=== PATIENT | female | born 1985 | race Caucasian/White ===

== ENCOUNTER 2022-07-15 08:58 | Day surgery (SDC) | payer OTHER, SELFPAY ==
--- NOTE | 2022-07-14 13:24 | P.CONAN_ITS ---
Documented by User: Africa Donnelly NP 07/14/22 13:25 HPI - Anesthesia Eval Consult details Narrative: 37yo F for Colonoscopy [facility] Past Medical History Medical History Ganglion cyst of wrist Irregular bowel habits Surgical History Surgical History (Updated 07/15/22 @ 09:31 by Rosy Becerra RN) History of cholecystectomy History of surgical removal of ganglion cyst Social History Social History Patient Tobacco Use Status: Never used Tobacco Use of substances other than those prescribed or required for medical reasons: Yes Substance Use Type Other:: edibles Are you DNR?: No Advance Directives: No Advance Directives Information Provided: Yes Meds Allergies Allergy/AdvReac Type Severity Reaction Status Date / Time doxycycline Allergy Nightmare Verified 07/15/22 09:32 Home Medications Medication Instructions Recorded Confirmed Last Taken Type prenat.vits,crystal,[id number]-[id number] 1 tab PO DAILY 07/15/22 07/15/22 Unknown History Exam Exam Date and Time: July 14, 20221323 Assessment and Plan Assessment Anesthesia Assessment: Chart Reviewed Documented by User: Yamileth Ledezma MD 07/15/22 11:59 [facility] Past Medical History Medical History Ganglion cyst of wrist Irregular bowel habits Family History Family history of problems with anesthesia: No Surgical History Surgical History (Updated 07/15/22 @ 09:31 by Rosy Becerra RN) History of cholecystectomy History of surgical removal of ganglion cyst History of Problems with Anesthesia: No Social History Social History Patient Tobacco Use Status: Never used Tobacco Use of substances other than those prescribed or required for medical reasons: Yes Substance Use Type Other:: edibles Are you DNR?: No Advance Directives: No Advance Directives Information Provided: Yes Meds Allergies Allergy/AdvReac Type Severity Reaction Status Date / Time doxycycline Allergy Nightmare Verified 07/15/22 09:32 Home Medications Medication Instructions Recorded Confirmed Last Taken Type prenat.vits,crystal,ddf-[id number]-jkfbj 1 tab PO DAILY 07/15/22 07/15/22 Unknown History Exam Airway Mallampati Class: II TM Dist: >3cm Neck ROM: Full Heart: rr Lungs: cta Assessment and Plan Assessment Anesthesia Assessment: Anesthesia Plan Discussed Final Anesthetic Review Family History of Problems with Anesthesia: No History of Problems with Anesthesia: No NPO: Yes ASA Class: II Final Preanesthetic Review: No Changes in Pt Med Stat, Meds/Allgs Chart Reviewed, Consent Obtained/Reviewed and Anes Risks/Benef Reviewed Patient Risk: Low Procedure Risk: Low Anesthetic Plan Anesthetic Plan: MAC:
[2022-07-15 09:08] VITALS: BMI 36.3
[2022-07-15 09:16] VITALS: BP 130/76; PULSE 90; RESP 15; TEMP 36.6; O2SAT 98
[2022-07-15 09:19] LABS: UPreg QC Valid YES; Urine Pregnancy NEGATIVE (NEGATIVE)
[2022-07-15] MEDS: Lactated Ringers 1,000 ML 100 ML IVCONT (09:30)
--- NOTE | 2022-07-15 10:07 | PM.OP ---
Brief Operative Note Date of Service: 07/15/22 Pre-op diagnosis: Screening Post-op diagnosis: other (Colon polyps) Procedure: Colonoscopy to the cecum with hot snare polypectomy x 2, bx/removal of cecal polyps, and biopsy at 20cm Surgeon: Serafin Noland Anesthesia: MAC Was an Barrel Assembler used for this Procedure?: No Estimated blood loss (mL): 2.0 Pathology: other (A. Polyp at 40cm B. Cecal polyps C. Polyp at 60cm D. Biopsies at 20cm, ? Lipoma) Condition: stable Disposition: PACU
[2022-07-15 11:04] VITALS: BP 105/70; PULSE 82; RESP 18; TEMP 36.2; O2SAT 98
--- NOTE | 2022-07-15 11:09 | PM.OP ---
Brief Operative Note Date of Service: 07/15/22 Pre-op diagnosis: Diarrhea, Family history of colon polyps, Screening Post-op diagnosis: other (R/O Microscopic colitis) Procedure: Colonoscopy to the cecum and TI with biopsies Surgeon: Serafin Noland Anesthesia: MAC Was an Continuous Mining Machine Coal Miner used for this Procedure?: No Estimated blood loss (mL): 2.0 Pathology: other (A. Terminal ileum B. Ascending colon C. Descending colon) Condition: stable Disposition: PACU
[2022-07-15 11:19] VITALS: BP 108/73; PULSE 72; RESP 18; TEMP 36.1; O2SAT 100
--- NOTE | 2022-07-15 11:34 | OP_ITS ---
SURGEON: Serafin Noland MD INDICATIONS: The patient presents for evaluation of family history of colon polyps in a sister and chronic diarrhea. Full consent was obtained from her for this, including risks of bleeding and perforation. PREOPERATIVE DIAGNOSIS: POSTOPERATIVE DIAGNOSIS: PROCEDURE PERFORMED: Colonoscopy to the cecum and terminal ileum with biopsies. ESTIMATED BLOOD LOSS: COMPLICATIONS: ANESTHESIA: Medication use; monitored anesthesia care. ASSISTANTS: SPECIMENS: PREOPERATIVE DIAGNOSES: Family history of colon polyps and diarrhea. POSTOPERATIVE DIAGNOSES: Family history of colon polyps and diarrhea, rule out microscopic colitis, normal colonoscopy. DESCRIPTION OF PROCEDURE: The patient was placed in the left lateral decubitus position. The digital rectal exam revealed no abnormalities. The Olympus videopediatric colonoscope was entered into the rectum and advanced easily to the cecum. Once in the cecum, I did identify normal-appearing cecal pouch with appendiceal orifice and a normal-appearing ileocecal valve. The terminal ileum was cannulated and appeared normal. Biopsies were obtained from the terminal ileum. The scope was withdrawn back in the colon. The entire cecum and ileocecal valve appeared normal. The scope was slowly withdrawn assessing all mucosal surfaces carefully. Preparation was excellent. I did not visualize any sign of polyps, colitis, nor angiodysplasia. Random biopsies were obtained in the ascending and descending colon. In the rectum, the scope was retroflexed visualizing normal rectal mucosa and no pathology. The scope was straightened and withdrawn the patient. She tolerated the procedure well and was returned to the recovery area in stable condition. IMPRESSION: Normal colonoscopy, rule out microscopic colitis. PLAN: The results of biopsies will be checked. She will start a regimen of cholestyramine to see if that can help with her diarrhea that may be at least partially due to some bile-induced diarrhea in relation to a previous cholecystectomy. She was advised to see me by the fall for a followup visit and to have a repeat colonoscopy in 5 years given her family history of a sister with precancerous polyps. MD VONNIE Méndez/MELISSA / [id number]
[2022-07-15 11:42] VITALS: BP 108/68; PULSE 69; RESP 18; TEMP 36.4; O2SAT 100
--- NOTE | 2022-07-15 12:02 | HO.ANESPROP2 ---
[facility] Past Medical History Medical History Ganglion cyst of wrist Irregular bowel habits Family History Family history of problems with anesthesia: No Surgical History Surgical History (Updated 07/15/22 @ 09:31 by Rosy Becerra RN) History of cholecystectomy History of surgical removal of ganglion cyst History of Problems with Anesthesia: No Social History Social History Patient Tobacco Use Status: Never used Tobacco Use of substances other than those prescribed or required for medical reasons: Yes Substance Use Type Other:: edibles Are you DNR?: No Advance Directives: No Advance Directives Information Provided: Yes Meds Allergies Allergy/AdvReac Type Severity Reaction Status Date / Time doxycycline Allergy Nightmare Verified 07/15/22 09:32 Home Medications Medication Instructions Recorded Confirmed Last Taken Type prenat.vits,crystal,zlc-yxev-ivjdy 1 tab PO DAILY 07/15/22 07/15/22 Unknown History Exam Exam Date and Time: July 15, 2022 1202 Height,Weight and Vital Signs: Height 5 ft 6 in Weight 102.058 kg Last Vital Signs Temp 97.6 F 07/15/22 11:42 Pulse 69 07/15/22 11:42 Resp 18 07/15/22 11:42 BP 108/68 07/15/22 11:42 Pulse Ox 100 07/15/22 11:42 O2 Del Method 07/15/22 11:42 Pertinent Lab Results Pertinent Lab Results: Laboratory Tests 07/15/22 09:10 Urine Test NEGATIVE Airway Mallampati Class: I TM Dist: >3cm Neck ROM: Full Heart: rr Lungs: cta Assessment and Plan Final Anesthetic Review Family History of Problems with Anesthesia: No History of Problems with Anesthesia: No ASA Class: II Final Preanesthetic Review: No Changes in Pt Med Stat, Meds/Allgs Chart Reviewed, Consent Obtained/Reviewed and Anes Risks/Benef Reviewed Patient Risk: Low Procedure Risk: Low Anesthetic Plan Anesthetic Plan: MAC: Disposition: Standard PACU
== END 2022-07-15 12:00 | disposition home or self-care (01) ==
PROVIDERS: Nurse Practitioner; PCP Family Medicine; Visit Provider Internal Medicine
PROC: 0DJD8ZZ Inspection of Lower Intestinal Tract, Via Natural or Artificial Opening Endoscopic (ICD-10-PCS; CPT 45378; principal; 2022-07-15 10:30)
DX: Z12.11 Encounter for screening for malignant neoplasm of colon (principal); Z83.71 Family history of colonic polyps; K58.2 Mixed irritable bowel syndrome; K90.89 Other intestinal malabsorption; Z90.49 Acquired absence of other specified parts of digestive tract; Z88.1 Allergy status to other antibiotic agents
CPT/HCPCS: 45380; 81025; 88305